=== PATIENT | male | born 1975 | race Caucasian/White ===

== ENCOUNTER 2025-03-11 10:23 | Emergency (ER) | payer OTHER, SELFPAY ==
[2025-03-11 10:27] VITALS: BP 146/79
--- NOTE | 2025-03-11 11:14 | ED.GENMED ---
History of Present Illness
General
Chief Complaint: Male Genito-Urinary Symptoms
Source: patient
Time Seen by Provider: 03/11/25 10:50
History of Present Illness
History of Present Illness:
49-year-old male presents the emergency room complaining of right testicular pain and swelling. Patient noted that discomfort starting last night and worse today. No specific trauma though the patient participated in a stretching class yesterday
afternoon. Patient has been experiencing some low back pain intermittently which is the reason he went to the surgical history denies any fever, chills, penile discharge. Denies any dysuria or frequency. Patient has a history of hernia repairs.
Phy Exam
Physical Exam
Physical Exam:
General: Awake, Alert, Oriented X3. No acute distress.
Vitals: unremarkable
Head: Atraumatic
Eyes: Pupils equal, EOMI
Throat: Airway intact, no exudates
Neck: Trachea midline
Abd: Soft, Nontender, No pulsatile mass
Genitalia: Normal appearing phallus, tenderness to palpation over the epididymis. Perhaps mild swelling but no discrete mass noted
Neuro: Nonfocal
Skin: Warm, dry, no rash
Extremities: pulses equal b/l, no edema
Course
Orders/Labs/Results
Orders:
Orders
03/11/25 11:12
Scrotum US [US Scrotum] Urgent
Comment:
Reason For Exam: r testicular pain/swelling
03/11/25 11:53
Urinalysis Reflex To Culture Urgent
Date Specimen was Collected: 03/11/25
Time Specimen was Collected: 11:52
Urine Microscopic Reflex Cult Urgent
Chlamydia/GC by PCR Urgent
VINOD Source: U
Specimen Description:
Source:: URINE
Date Specimen was Collected: 03/11/25
Time Specimen was Collected: 11:52
03/11/25 12:20
Ibuprofen [Motrin] 600 mg PO NOW STA
03/11/25 13:21
Add On- LAB Urgent
Tests Added?: PCR gc/chlamydia
Ceftriaxone Sodium [Rocephin] 500 mg IM NOW STA
03/11/25 13:30
Sterile Water [Sterile Water For Injection] 10 ml .ROUTE .K-MED ONE
Abnormal Lab Results
03/11/25
11:53
Ur Occult Blood Reflex 1+ A
(Negative)
Urine Urobilinogen 2+ A
(Neg - 1+)
Urine RBC 7-10 A /HPF
(0-2)
Urine Bacteria (Reflex) Few A
(Negative)
Urine Albumin (Reflex) 1+ A
(Neg - Trace)
Vital Signs
Initial and Last Documented VS:
Initial Vital Signs
Temp Pulse Resp BP Pulse Ox
98.2 F 70 16 146/79 98
03/11/25 10:27 03/11/25 10:27 03/11/25 10:27 03/11/25 10:27 03/11/25 10:27
Last Documented Vital Signs
Temp Pulse Resp BP Pulse Ox
98.2 F 61 16 123/77 98
03/11/25 10:27 03/11/25 13:03 03/11/25 13:03 03/11/25 13:03 03/11/25 13:03
MDM/Problems Addressed
Differential Diagnosis Includes:
Epididymitis, orchitis, testicular mass, hematoma
MDM/Problems Addressed:
Patient presents with right testicular pain. It seemed to begin a little while after doing a stretching class. Physical exam reveals some tenderness of the right posterior testicle suggestive of epididymitis. Ultrasound confirms some mild
hyperemia of the epididymis. Patient's urinalysis shows a few red blood cells but no significant pyuria. Patient's age we will cover with ceftriaxone and Doxy for potential GC chlamydia as well as other benedict that could cause urinary tract
infection. Recommended he follow-up with urology and given contact information for Dr. Cuello's office.
*Radiology
Radiology exam reviewed: radiology read reviewed
*Pulse Oximetry
SaO2: 98
Oxygen Mode of Delivery: Room air
Patient hypoxic: no
*Critical Care Note
Total Time (30-74mins, 75-104mins- exclusive of procedures): Not Applicable
ED Attending Note
-
Portions of this chart may have been created with voice recognition software.� Occasional wrong word or��sound alike� substitutions may have occurred due to the inherent limitations of voice recognition software.
Discharge Plan
Departure
Patient Disposition: Home (Routine Discharge)
Date of Disposition: 03/11/25
Time of Disposition: 13:26
Patient with high blood pressure during this ER visit?: No
Condition: Good
Discharge Problem:
Acute epididymitis
Instructions: Epididymitis and Orchitis
Prescriptions:
New
doxycycline monohydrate 100 mg capsule
100 mg PO BID Qty: 20 0RF
Referrals:
Fidel Cuello MD [Active, Urology]
Kit Cole MD [Primary Care Provider, Family Practice]
Activity Restrictions/Additional Instructions:
Your ultrasound shows that you have some inflammation of the epididymis on the right. We have given you a shot of an antibiotic here and we also prescribed another antibiotic for 10 days. Make an appointment with Dr. Cuello who is a urologist.
Interventions
Interventions:
*Risk Screen - Suicide Last Done: 03/11/25 10:27
*General Assessment Last Done: 03/11/25 10:34
*Neglect/Abuse Screening Last Done: 03/11/25 10:27
*ED- Fall Risk Assessment Last Done: 03/11/25 10:34
*ED COVID-19 Vaccine History Last Done: 03/11/25 10:34
*Nursing Disposition Last Done: 03/11/25 13:40
ED-Male Genitourinary Assessment Last Done: 03/11/25 10:34
Discharge Date and Time
Discharge Date/Time: 03/11/25 13:42
Print Language: BRUNEIAN
[2025-03-11 12:11] LABS: Urine Character Clear (Clear)
[2025-03-11 12:17] LABS: Urine Squamous Cell 0-2 /LPF (Few)
[2025-03-11 12:19] LABS: Urine White Cell None Seen /HPF (0-5)
[2025-03-11] MEDS: MOTRIN 600 MG PO (13:00)
[2025-03-11 13:03] VITALS: BP 123/77
[2025-03-11] MEDS: ROCEPHIN 500 MG IM (13:34)
== END 2025-03-11 13:42 | disposition home or self-care (01) ==
LOC: EMR 10:23
PROVIDERS: EMERGENCY PHYSICIAN Emergency Medicine; PRIMARYCARE PHYSICIAN Family Medicine
DX: N45.1 Epididymitis (principal)
CPT/HCPCS: 96372; 99284; 76870; 81003; 81015; 87491; 87591; 93976